=== PATIENT | female | born 1990 | race Caucasian/White ===

== ENCOUNTER 2017-01-08 10:44 | Outpatient (CLI) | payer BC ==
[~2017-01-08 10:44] MED LIST: CHILDREN'S MUL1 EAC5 PO; DICYCLOMINE HCL20 MG PO; MOTRIN800 MG PO; PAMPRIN MULTI-1 EACH PO; PERCOCET 5/31 TABLET PO; PRENATAL TABLE1 EAC3 PO; SLOW RELEASE I160 MG PO; ZANTAC75 M1 PO
== END 2017-01-08 12:53 | disposition home or self-care (01) ==
LOC: LDRP-OP 10:44 → 2WEST 10:45 → LDRP-OP 03-03 14:12
DX: O36.8130 Decreased fetal movements, third trimester, not applicable or unspecified (principal); Z3A.34 34 weeks gestation of pregnancy
CPT/HCPCS: 59025; G0378

== ENCOUNTER 2017-01-26 17:13 | Outpatient (CLI) | payer BC ==
[~2017-01-26] VITALS: Ht 175.3 cm; Wt 96.0 kg
[2017-01-26 17:25] VITALS: BP 117/70
[2017-01-26] MEDS ORDERED: PROBIOTIC1 EAC1 PO (18:01)
[2017-01-26] MEDS ORDERED: ZANTAC75 M1 PO (18:01)
[2017-01-26] MEDS ORDERED: FISH OIL 1,0001 EAC7 PO (18:01)
== END 2017-01-26 18:30 | disposition home or self-care (01) ==
LOC: LDRP-OP 17:13 → 2WEST 17:14 → LDRP-OP 03-03 12:58
DX: O36.8130 Decreased fetal movements, third trimester, not applicable or unspecified (principal); Z3A.00 Weeks of gestation of pregnancy not specified; Z23 Encounter for immunization
CPT/HCPCS: 59025; 90686; G0378

== ENCOUNTER 2017-02-10 07:15 | Inpatient (IN) | payer BC ==
[~2017-02-10] VITALS: Ht 175.3 cm; Wt 95.4 kg
[2017-02-10] VITALS (16 sets, daily range): BP systolic 107–132; BP diastolic 56–85
[~2017-02-10 07:15] MED LIST changes: +FISH OIL 1,0001 EAC7 PO; +PROBIOTIC1 EAC1 PO
[2017-02-10 09:37] LABS: EOSINOPHIL (%) 0.4 % (0-5); HEMATOCRIT 38.2 % (36.0-46.0); IMMATURE GRANULOCYTE (%) 0.6 % (0.0-0.7); IMMATURE GRANULOCYTE COUNT 0.1 K/uL; INSTRUMENT ABS NEUTROPHIL CT 6.7 K/uL; LYMPHOCYTE COUNT 1.1 K/uL (1.0-2.8); MCH 30.9 PG (29.0-34.0); MCHC 34.3 G/DL (30.0-36.0); MCV 90.1 FL (83-99); MEAN PLAT.VOLUME 11.3 uM^3 (9.5-12.4); MONOCYTE COUNT 0.6 K/uL (0-0.8); NEUTROPHIL (%) 79.3 % (45-76); NEUTROPHIL COUNT 6.7 K/uL (1.8-6.4); PLATELET COUNT 125 K/uL (156-360); RBC DIS.WIDTH-CV 12.7 % (11.8-14.6); RBC DIS.WIDTH-SD 41.5 % (39-53); RED BLOOD COUNT 4.24 M/uL (3.80-5.20); WHITE BLOOD COUNT 8.5 K/uL (4.1-10.2)
[2017-02-10] MEDS ORDERED: IBUPROFEN800 MG PO (20:51)
[2017-02-11 07:19] VITALS: BP 116/75
[2017-02-11 15:04] VITALS: BP 107/66
== END 2017-02-12 11:48 | disposition home or self-care (01) | DRG 775 ==
LOC: LDRP-OP 07:15 → 2WEST 07:18 → LDRP-OP 16:21 → 2WEST 20:07 → LDRP-OP 03-03 02:24
PROVIDERS: Midwife
DX: O48.0 Post-term pregnancy (principal); O99.824 Streptococcus B carrier state complicating childbirth; L40.9 Psoriasis, unspecified; O99.62 Diseases of the digestive system complicating childbirth; K21.9 Gastro-esophageal reflux disease without esophagitis; Z3A.41 41 weeks gestation of pregnancy; Z37.0 Single live birth
CPT/HCPCS: 85025; J2540; J7120